=== PATIENT | female | born 1995 | race Two or more races ===

== ENCOUNTER 2024-10-26 15:45 | Emergency (ER) | payer MEDICAID, OTHER ==
[~2024-10-26] VITALS: Ht 165.1 cm; Wt 110.0 kg
[2024-10-26 15:48] VITALS: BP 122/78; PULSE 100; RESP 16; TEMP 97.9; O2SAT 99
== END 2024-10-26 17:03 ==
LOC: ER 15:45
DX: M79.10 Myalgia, unspecified site (principal); Z53.21 Procedure and treatment not carried out due to patient leaving prior to being seen by health care provider